=== PATIENT | female | born 2000 | race Caucasian/White ===

== ENCOUNTER 2025-07-14 12:10 | Emergency (ER) | payer SELFPAY ==
[2025-07-14 12:38] VITALS: BP 116/81; PULSE 95; RESP 16; TEMP 36.9; O2SAT 99
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
--- NOTE | 2025-07-14 17:35 | PC.NURSE ---
ALCON nurse finished at approximately 16:15. RESEARCH PSYCHOLOGIST communicated with MD Payan and this RN that pt denies prophylactic treatment, but agreed to labs. Lab orders placed at 16:19. This RN spoke with MD Millan regarding need for suicide precautions at that time, and if we should obtain labs needed for medical clearance. MD Payan told this RN to repeat [place] screening and reassess if pt is continuing to have suicidal thoughts before initiating suicide precautions. RN went to pt's bedside, had conversation with pt and repeated [place] documentation. Pt denied having any suicidal thoughts to this RN. Pt states that she has access to psychiatric resources if needed, but was not able to give RN specific details. RN explained to patient that I was trying to cluster care to get all needed labs with one venous stick, that I would go talk with MD Payan and would return to obtain the ordered labwork. RN informed MD Payan that pt denies any suicidal thoughts at that time and since last asked, but this RN expressed concern that she was high-risk initially due to having a plan/self-harm attempt in April (per patient). MD Payan went into pt's room to reassess, MD Payan told this RN at 16:55 that pt is okay for discharge following labs, but that patient was not wanting to stay for results, so to make sure we have a reliable phone number on her chart. At 17:07, PCT went to patient's room to obtain labs, and registration went in as well to update pt's information. Pt was then anxious, RESEARCH PSYCHOLOGIST told this RN that patient was wanting to leave, registration told this RN that patient was not answering her questions, and that pt also was refusing labs. This RN went to bedside to speak with pt, who was then not making eye contact, was fidgety, standing, holding all belongings, and stating that she didn't want to be here any longer. Pt appeared to be worked up, pt's partnership manager, who had remained at bedside throughout her stay, was able to calm pt down and remind her that she is safe. This RN tried to reassure pt, MD Payan called to nurse's station. This RN spoke with MD Payan about pt's sudden anxiousness to leave and change in behavior in such a short time. MD Payan came to bedside to speak with pt again. Pt A&Ox4, verbalized understanding of risks if she does not stay for labs, again denies SI/HI and states she is wanting to leave. Per MD Payan, pt ready to be discharged. RN informed pt that we do not have a phone number on file, and it is important to be able to contact her if any testing would come back abnormal. Pt agreed to be registered before leaving, this RN stayed in room for registration. Pt did not provide an address, and stated she did not have anyone to list for an emergency contact. Pt's partnership manager at bedside, Deysi, encouraged pt to list her as her emergency contact and pt agreed. RN again asked pt if she has a safe place to go when she leaves here, and a safe place to sleep. Pt said she did. RN offered to provide list of resources with phone numbers to call even thought she was not wanting to stay for a psychiatric evaluation. Pt declined. Pt was providing very minimal answers. RN reassured pt that I just want to make sure that she is safe, and that she has all of the resources that she needs to follow-up after leaving here. RN asked pt if I could speak with her partnership manager and pt agreed. Deysi stated that pt has her own vehicle and is staying in it, that she has a job and attends school, that she had declined to stay at the safe home, and that she is starting a different program soon to hopefully provide psychiatric resources that will fit her schedule better to make it easier for her to receive consistent care. Deysi states that she is in close contact with pt, and that she will continue to be after leaving here. I applauded pt for her job and school accomplishments and continued to encourage her to follow-up. This RN again reinforced that if she changes her mind, feels unsafe, or if suicidal thoughts return, to return to the ED. Pt nodded in agreement. RN walked pt and partnership manager out to waiting room.
--- OUTSIDE RECORDS SUMMARY | 2025-07-14 18:02 | XMS_ITS | Continuity of Care Document ---
Author Name 2ND.MD Marilee Address [address] [place] [address] Organization Unknown Address [address] [place] [address] Medications No known medications Problems No known problems
--- OUTSIDE RECORDS SUMMARY | 2025-07-14 18:02 | XMS_ITS | Encounter Summary ---
Author Organization [facility] Address [address] [place] [address] Encounters * Virtual Check-in with 2ND.MD Hnut at [employer] on 2025-04-22 The member completed a virtual educational consultation with a specialist to discuss the following: Musculoskeletal - Joint/Ligament/Tendon - Knee Written by 2ND.MD Hunt on 2025-04-22
[2025-07-14 18:06] LABS: Add Urine Microscopic? YES; Appearance Urine Clear (Clear); Glucose Urine UA Negative (Negative); Leukocyte Esterase Ur Trace LEU/UL (Negative); Nitrate Urine Negative (Negative); Non Pathogenic Casts 0-2; Specific Grav Ur 1.014 (1.001-1.035)
[2025-07-14 21:25] LABS: Trichomonas Vag PCR NOT DETECTED (NOT DETECTE)
== END 2025-07-14 17:35 | disposition home or self-care (01) ==
PROVIDERS: Emergency Provider Preventive Medicine Aerospace Medicine
DX: T74.21XA Adult sexual abuse, confirmed, initial encounter (principal)
CPT/HCPCS: 81001; 87491; 87591; 87661; 99285